=== PATIENT | female | born 1995 | race Caucasian/White ===

== ENCOUNTER 2023-05-12 13:51 | Outpatient (CLI) | payer OTHER, SELFPAY ==
--- NOTE | 2023-05-12 14:00 | CRLHL7_ITS ---
For Patients: As a result of the Century Cures Act, medical imaging exams and procedure reports are released immediately into your electronic medical record. You may view this report before your referring provider. If you have questions, please contact your health care provider. INDICATION: First trimester scan, establish dates. COMPARISON: None. TECHNIQUE: Real-time alcazar-scale imaging of the pelvis was performed. FINDINGS: Sonographic imaging demonstrates a single living intrauterine gestation. The embryo demonstrates a regular cardiac rate measuring 166 beats per minute. The embryo`s crown-rump length measurement of 3.5 cm corresponds to a gestational age of 10 weeks 3 days with a sonographic due date of 12/05/2023. There is a normal-appearing yolk sac. There are no gross abnormalities noted within the embryo at this early state of development. The gestational sac has a normal appearance. There is no evidence of a perigestational hemorrhage. The amount of fluid within the sac appears appropriate for gestational age. The cervix is closed. The myometrium appears normal. The ovaries are of normal size. Corpus luteal cyst left ovary. There are no suspicious fluid collections noted in the cul-de-sac. IMPRESSION: Normal first trimester OB ultrasound exam. Gestational age calculated at 10 weeks 3 days with a sonographic due date of 12/05/2023. Dictated by Keny Arciniega MD @ 05/13/2023 9:46:31 AM (Electronically Signed)
== END 2023-05-12 13:52 | disposition home or self-care (01) ==
LOC: US 13:52
PROVIDERS: Visit Provider Advanced Practice Midwife
DX: Z34.91 Encounter for supervision of normal pregnancy, unspecified, first trimester (principal); Z3A.10 10 weeks gestation of pregnancy
CPT/HCPCS: 76801

== ENCOUNTER 2023-05-12 15:15 | Outpatient (CLI) | payer OTHER, SELFPAY | END 2023-05-12 15:16 | disposition home or self-care (01) | PROVIDERS: Visit Provider Advanced Practice Midwife | DX: Z34.91 Encounter for supervision of normal pregnancy, unspecified, first trimester (principal); Z3A.10 10 weeks gestation of pregnancy | CPT/HCPCS: 86592; 86703; 86762; 86787; 86803; 86850; 86900; 86901; 87086; 87340; 87491; 87591 ==

== ENCOUNTER 2023-07-26 15:00 | Outpatient (CLI) | payer OTHER, SELFPAY ==
--- NOTE | 2023-07-26 15:00 | CRLHL7_ITS ---
For Patients: As a result of the Century Cures Act, medical imaging exams and procedure reports are released immediately into your electronic medical record. You may view this report before your referring provider. If you have questions, please contact your health care provider. INDICATION: 2nd trimester anatomical survey. TECHNIQUE: Ultrasound OB pelvis transabdominal. Real-time alcazar-scale imaging of the fetus was performed as well as color Doppler and spectral Doppler analysis of the umbilical artery. COMPARISON: None. FINDINGS: There is a single living intrauterine gestation. heart activity: Regular cardiac rate of 165 beats per minute. Orientation: Breech. Placenta: Anterior. No previa. Amniotic fluid volume: Normal. Deepest pocket 4 cm. Cervix: 3 cm. Biometry: Biparietal diameter: 20 weeks 4 days. Head circumference: 20 weeks 4 days. Abdominal circumference: 21 weeks 5 days. Femoral length: 21 weeks 1 day. The composite ultrasound gestational age is calculated at 21 weeks 0 days with an estimated sonographic due date of December 06, 2023. The weight is estimated at 416 grams, the 78th percentile. Anatomical Survey: 4 chamber heart: Visualized. Stomach: Visualized. Kidneys: Visualized. Bladder: Visualized. Spine: Visualized. Sacrum: Visualized. 4 extremities: Visualized. Cord insertion: Visualized. 3V cord: Visualized. Face: Visualized. Nose: Visualized. Lips: Visualized. Cerebellum: Visualized. Cisterna Magna: Visualized. Lateral ventricles: Visualized. IMPRESSION: 1. Single viable intrauterine . 2. No intrinsic abnormalities noted on anatomic survey. Dictated by Feliberto Martin MD @ 07/27/2023 4:25:02 PM (Electronically Signed)
== END 2023-07-26 15:01 | disposition home or self-care (01) ==
LOC: US 15:01
PROVIDERS: Visit Provider Advanced Practice Midwife
DX: Z34.92 Encounter for supervision of normal pregnancy, unspecified, second trimester (principal); Z3A.20 20 weeks gestation of pregnancy
CPT/HCPCS: 76805

== ENCOUNTER 2023-09-16 14:00 | Outpatient (CLI) | payer OTHER, SELFPAY | END 2023-09-16 14:01 | disposition home or self-care (01) | LOC: NFLDREF 09-20 07:53 | PROVIDERS: Visit Provider Advanced Practice Midwife | DX: Z34.83 Encounter for supervision of other normal pregnancy, third trimester (principal) | CPT/HCPCS: 86592 ==

== ENCOUNTER 2023-09-23 07:41 | Outpatient (CLI) | payer OTHER, SELFPAY | END 2023-09-23 07:42 | disposition home or self-care (01) | PROVIDERS: Visit Provider Advanced Practice Midwife | DX: Z34.03 Encounter for supervision of normal first pregnancy, third trimester (principal) | CPT/HCPCS: 82951; 82952 ==

== ENCOUNTER 2023-11-11 11:05 | Outpatient (CLI) | payer OTHER, SELFPAY | END 2023-11-11 11:06 | disposition home or self-care (01) | LOC: NFLDREF 11-16 07:39 | PROVIDERS: Visit Provider Advanced Practice Midwife | DX: Z34.03 Encounter for supervision of normal first pregnancy, third trimester (principal) | CPT/HCPCS: 87081; 87653 ==

== ENCOUNTER 2023-12-02 02:23 | Inpatient (IN) | payer OTHER, SELFPAY ==
[2023-12-02] VITALS (30 sets, daily range): BP systolic 105–142; BP diastolic 60–90; PULSE 73–142; RESP 16–18; TEMP 36.5–37.3; O2SAT 96–99; BMI 28.5
[2023-12-02 02:56] LABS: Basophils Percent Auto 0.3 % (0.0-3.0); Eosinophils Percent Auto 0.3 % (0.0-7.0); Hematocrit 39.8 % (33.0-51.0); Hemoglobin* 13.6 gm/dL (12.0-16.0); Immature Granulocytes Pct Auto 0.3 %; Lymphocytes Percent Auto 9.2 % (20-44); Mean Corpuscular HGB Conc 34 gm/dL (32-36); Mean Corpuscular Hemoglobin 31 pg (26-34); Mean Corpuscular Volume 92 fL (80-100); Monocytes Percent Auto 6.3 % (0.0-11.0); Neutrophils Percent Auto 83.6 % (42.0-72.0); Platelet Count* 219 K/uL (140-440); RDW Coefficient of Variation % 12.9 % (11.5-15.5); Red Blood Count 4.35 m/uL (4.00-5.20); White Blood Count* 14.19 K/uL (4.50-11.00)
[2023-12-02 03:42] LABS: Slide Review Reflex No
--- NOTE | 2023-12-02 05:39 | P.LDBA_ITS ---
Subjective History of Present Illness Narrative: Patient is being admitted to Labor and Delivery for active labor. She is a 28 year old at 39.1 weeks gestation. Her full history and physical was dictated by Sho Carias CNM on 11/18/23. Please see this for details. She began contraction around 2200 yesterday evening. They quickly increased to every 2-3 minutes and slowly increased in intensity. She came to be evaluated around 0100. at that time she was 1cm but 1.5 hours later she was 3-4/60%/-2 per RN exam. She currently feels that they are still increasing in intensity and is breathing through them. She has been attempting to rest between contractions for the last couple of hours but is ready to get up and move. We talked about the labor warm up circuit and other position changes. The RN will assist her with these. Offered to recheck her cervix but she declines at this time. The RN did briefly discuss with the patient the recommendation for enoxaparin PP but the patient states that she will likely decline. Will plan to discuss this more indepth after delivery. Specific Issues/Plans H&P by Sho Carias CNM on 11/18/23 1. Hx of exercise induced asthma, mostly as a child 2. Heterozygous Factor 5 Leiden mutation [facility] consult: completed w/ [facility] 05/31/2023 Offered monitoring for dvt vs anticoagulation during , declined anticoagulation during : Recommend prophylactic anticoagulation therapy of intermediate dose LWWH/UFH for 6 weeks pp Plan : Enoxaparin 40 mg daily starting 6-12 following or 12-24 following c/s 3. Failed 1 hour gct (149) 3 hour gct: passed all 3 values Needs pap Flu: declines (06/01/2023) Tdap: declined COVID: declined 32wk Mental Health: 10/14/2023 34wk Hgb: 10/28/2023 OB - Problem Based A/P Additional Plan (1) Heterozygous factor V Leiden mutation: Status: Acute (2) Pain during labor: Status: Acute (3) Asthma, exercise induced: Problem details: Mostly as a child Status: Acute Plan ASSESSMENT:? at 39.1 weeks gestation? GBS negative? complicated by Heterozygous Factor 5 Leiden mutation. Declined recommended medication treatment during . ? ?? PLAN:? 1. Desires water . Consent signed. Hep C negative.? 2. Candidate for analgesia of choice. Planning unmedicated .? 3. Anticipate ? 4. Plan for Enoxaparin 40mg daily starting . Will discuss further at that time. 5. Expectant management at this time.? 6. Criteria not met for IV placement at this time. Placemnt if criteriam are met. 7. Intermittent auscultation after reactive tracing per policy.? ? Delivery/Labor/Induction Plan Plan: expectant management OB Result Labs Blood Type: O (+) positive GBS Status: negative OB Exam Physical Exam Vital signs: Temp Pulse Resp BP 98 F 116 H 18 111/66 12/02/23 03:10 12/02/23 04:54 12/02/23 03:10 12/02/23 04:54 Narrative: Psychiatric:? Alert and oriented x3? HEENT:? Normocephalic, atraumatic? Neck:? Supple without adenopathy or thyromegaly? Lungs:? Clear to auscultation bilaterally? Heart:? Regular rate and rhythm, no murmur, rub or gallop? Abdomen:? Soft, nontender, and gravid? Extremities:? No edema or erythema? Detailed Labor and Delivery Exam Patient Gravid: Yes Dilation (cm): 3 (per RN exam) Effacement (%): 60 Contraction Frequency: Q3-4 minutes Fetus (Single) Station: -2
--- NOTE | 2023-12-02 07:50 | PM.OBPNL ---
Subjective Date Seen: 12/02/23 Narrative: Teresa is a at 39 1/7 weeks gestation that presented this morning in labor. She is supported by her , Shailesh. She is coping well with contractions with ambulation, position changes, and rest. When I rounded she had reported that she had just had a gush of clear fluid. Objective Exam: Objective: Constitutional: Alert and oriented x3, mild/moderate distress, coping well Vital signs stable, see nurse documentation Abdomen: gravid, contractions palpate moderate with contractions and soft between Cervix: 3-4 cm around 5 am by RN Intermittent auscultation: Reassuring, baseline consistent with NST this am Vital Signs: Last Vital Signs Temp 97.7 F 12/02/23 07:39 Pulse 113 H 12/02/23 07:39 Resp 16 12/02/23 07:39 BP 136/90 H 12/02/23 07:39 Pulse Ox 99 12/02/23 06:20 Contractions Monitor mode: Palpation Contraction Frequency: 2-5 minutes Contraction pattern: Irregular Contraction intensity: Moderate Assessment Assessment: early labor Station: -2 Plan Plan: ASSESSMENT:? 28 yo at 39.1 weeks gestation? complicated by:?Heterozygous Factor 5 Leiden mutation Labor type: Spontaneous, Early labor? Intermittent Auscultation, reassuring Labor complicated by: none? GBS negative? ? PLAN:? 1. Routine intrapartum cares as ordered. Continue with expectant management? 2. Monitoring per policy, intermittent? 3. Planning unmedicated . Desires water . Consent signed. Hep C negative. Candidate for analgesia of choice if desired.?? 4. Patient encouraged to reposition and ambulate to promote physiologic labor and .? 5. Plan for Enoxaparin 40mg daily starting . Will discuss further at that time. 6. Anticipate ?
[2023-12-02] MEDS: OXYTOCIN 10 UNIT/ML INJ IM (22:01)
--- NOTE | 2023-12-02 22:41 | W.PM.OBVAGDE ---
OB Procedure Vag Delivery Mother Details Mother Details: The patient is a 28 year-old, 1, now Para 1, admitted on 12/02/23 at 39.1 gestation. : 1 Para: 1 Weeks Gestation: 39.1 Admission Date: 12/02/23 Additional Details Amniotic Membrane Status: SROM Amniotic Membrane Rupture Date: 12/02/23 Amniotic Membrane Rupture Time: 06:59 Amniotic Membrane Fluid Description: Clear (Forebag ruptured at time of complete) Analgesia/Anesthesia Type: None Waterbirth: Yes Pitcoin: Yes (AMTSL only) Intrapartal Events: None Labor Onset: 02:15 Complete: 17:34 Pushin:40 Heart: heart tones during second stage were reassuring via intermittent auscultation throughout. Delivery Details Delivery Date: 12/02/23 Delivery Time: 21:48 Route of delivery: Infant Gender: Male Infant Viability: Alive; Heart Rate Present Position at Delivery: OA Delivery Details: Patient was admitted for spontaneous onset of labor and progressed normally. SROM noted at 0659 with clear fluid, AROM of forebag at 1734 with clear fluid. Patient was complete at 1734 but did not have an urge to push. She labored in the tub and began pushing at 1840. She pushed in multiple positions in the tub. of a viable male at 2148 in semi-fowlers in the tub. Vertex delivered OA. No nuchal cord or shoulder. Body delivered easily and without incident. Infant passed to mothers abdomen with a vigorous cry. Cord was clamped and cut at > 5 minutes. APGARS were 7 at one minute and 9 at five minutes respectively. Mouth was bulb suctioned. Intact placenta with a 3 vessel cord delivered spontaneously at 2215. Assorted area of fat deposits from placenta up side into amniotic sac. Placenta sent to pathology. Fundus firm. Intact perineum identified. QBL 425 cc, IM pitocin given for AMTSL. Mother and baby stable; mother plans to breastfeed. weight 6lb 1.4 oz. 1 Minute Interval Total Score: 7 5 Minute Interval Total Score: 9 Additional Details Shoulder Dystocia: No Placenta Delivery Time: 22:15 Placental Delivery Description: Spontaneous Procedure Done: Global Blood Loss: 425 Laceration: None Blood Loss Measurement Type: QBL Bakri Used: No Sponge/Need Count Correct: Yes Cord Vessel Description: 3 Vessels Event Summary Status: Mother and were stable after delivery. Patient was recommended prophylaxis Lovenox for Factor V heterozygous mutation. She declines. This was reviewed during and again briefly . She still declines at this time. Disposition: floor
[2023-12-03] VITALS (9 sets, daily range): BP systolic 105–119; BP diastolic 59–87; PULSE 68–108; RESP 16–18; TEMP 36.6–37.3; O2SAT 96–99
--- NOTE | 2023-12-03 00:48 | PM.OBPNL ---
Subjective Date Seen: 12/03/23 Narrative: Teresa is a 28 yo at 39.1 weeks gestation that presented in early labor this morning. She has made cervical change and is progressively more uncomfortable. She is supported by her , Shailesh. She has used the shower, position changes, and rest for management of contraction pain. She is feeling like she doesn't know if she can continue. Patient denies any urge to push, does occasionally have pressure in her vagina. Objective Exam: Objective: Constitutional: Alert and oriented x3, moderate/severe distress, coping well Vital signs stable, see nurse documentation Abdomen: gravid, contractions palpate strong with contractions and soft between Cervix: Complete with bulging BOW, 0 station Reassuring via intermittent auscultation Vital Signs: Last Vital Signs Temp 99.2 F 12/03/23 00:22 Pulse 98 12/03/23 00:19 Resp 18 12/03/23 00:22 BP 112/64 12/03/23 00:19 Pulse Ox 96 12/03/23 00:22 Contractions Monitor mode: Palpation Contraction pattern: Irregular Contraction intensity: Moderate Assessment Station: -2 Amniotic Membrane Status: AROM Plan Plan: Reviewed options of AROM vs expectant management. Recommend AROM to assist in descent. Patient would like to return to tub for labor support after AROM. This was performed with consent with clear fluid. Anticipate .
[2023-12-03] MEDS: IBUPROFEN 600 MG TABLET PO ×2 (03:18→09:50)
[2023-12-03] MEDS: ACETAMINOPHEN 500 MG TABLET 1000 MG PO (05:54)
--- NOTE | 2023-12-03 09:18 | P.OBPN_ITS ---
OB - PN:Subj Subjective Date Seen: 12/03/23 Patient comments OB post-: no complaints, pain well controlled, tolerating diet and flatus present [place] status: (working on latching with help from nursing staff ) and doing well [place] feeding status: exclusively Narrative: Day 1:? Vaginal Delivery at 39 and 1/7 weeks.? ?? Complications:? none? The patient feels well.? The pain is well controlled with current medications.? She has no new complaints.? Urinary output is adequate and she is voiding without difficulty.? Has a good appetite, is tolerating a general diet, is passing flatus, and has not had a bowel movement.? Has small amount of rubra lochia.? She is ambulating well.?Again discussed recommendation for Enoxaparin 40 mg daily r/t factor V diagnosis and denies and denies questions or concerns. OB - PN: Obj Exam Physical Exam: Vital signs: Temp Pulse Resp BP Pulse Ox O2 Del Method 99.2 F 105 H 18 106/71 96 Room Air 12/03/23 02:54 12/03/23 02:54 12/03/23 02:54 12/03/23 02:54 12/03/23 00:22 12/03/23 02:54 Narrative: GENERAL APPEARANCE:? normal affect, alert, no distress? MOOD:? appropriate? CHEST:? clear to auscultation and percussion? HEART:? regular rate and rhythm? ABDOMEN:? soft, non-tender the uterine fundus is U/2 and is appropriate for the stage of recovery.? PERINEUM:? mild edema of the perineum, there is a intact perineum that is healing well.? EXTREMITIES:? normal and no edema? OB - PN: A/P Delivery Assessment and Plan (1) Heterozygous factor V Leiden mutation: Status: Acute (2) Asthma, exercise induced: Problem details: Mostly as a child Status: Acute (3) Lactating mother: Status: Acute (4) care following vaginal delivery: Status: Acute Plan day: 1 Plan: routine care Comments: Anticipate discharge tomorrow.
[2023-12-03] MEDS: DOCUSATE SODIUM 100 MG CAPSULE PO (09:51)
[2023-12-03 12:01] LABS: Rapid Plasma Reagin (RPR) Non Reactive (Non Reactive)
--- NOTE | 2023-12-04 08:53 | PM.OBDSVD1 ---
DS: Providers Provider Date Seen: 12/04/23 Date of admission: 12/02/23 02:23 Primary care physician: Not a Local Provider Admitting Clinician: Diamond Prasad CNM Attending Physician on discharge: Diamond Prasad CNM Date of Discharge: 12/04/23 DS: Diagnosis Discharge Diagnosis (1) care following vaginal delivery: Status: Acute (2) Lactating mother: Status: Acute (3) Heterozygous factor V Leiden mutation: Status: Acute Exam Narrative: Exam Narrative: GENERAL APPEARANCE:? normal affect, alert, no distress? MOOD:? appropriate? CHEST:? clear to auscultation and percussion? HEART:? regular rate and rhythm? ABDOMEN:? soft, non-tender the uterine fundus is firm, at the Umbilicus and to the right. She endorses a need to urinate and this was encouraged. It is appropriate for the stage of recovery. ? PERINEUM:? mild edema of the perineum, there is a intact perineum that is healing well.? EXTREMITIES:? normal and no edema? Patient has no complaints? No active bleeding?? Doing well? She is requesting discharge home.? Const: Vital Signs, click to edit/add: Vital Signs - 24 hr 12/03/23 08:55 12/03/23 13:00 12/03/23 17:45 Temperature 98.4 F 97.8 F 98.1 F Pulse Rate [Pulse Oximeter] 97 79 84 Respiratory Rate 16 16 16 Blood Pressure [Le ft Arm] 105/72 119/76 111/75 Pulse Oximetry 96 96 97 Oxygen Delivery Me thod Room Air Room Air Room Air 12/03/23 19:59 12/03/23 23:40 Temperature 98.6 F 98.6 F Pulse Rate [Pulse Oximeter] 94 68 Respiratory Rate 18 16 Blood Pressure [Le ft Arm] 111/87 106/74 Pulse Oximetry 99 Oxygen Delivery Me thod Room Air Room Air Documenting provider has reviewed patient's vital signs: yes OB - DS: Summary Hospital Course Hospital Course: The patient is a 28 year old G 1 P 1 at 39.1 weeks gestation that was admitted to the Center on 12/02/23 for spontaneous labor. She had an uncomplicated vaginal delivery. She delivered a viable male . She is breast feeding and feels it is going good. Working on [employer], encouraged visit with concerns. the patient has done well.?Her pain is well controlled with current medications.? She has no new complaints.? Urinary output is adequate and she is voiding without difficulty.? Has a good appetite, is tolerating a general diet, is passing flatus, and has not had a bowel movement.? Has scant amount of rubra lochia.? She is ambulating well.?She is planning NFP and condoms for contraception. Peripartum Data delivery method: Vaginal Laceration description: None Episiotomy description: None complications: none Gender: Male Discharge Plan: Home Status at Discharge Functional status at discharge: independent ambulation Overall status at discharge: patient is progressing back to baseline Time Spent with Patient Time attestation: Total time spent providing and/or coordinating discharge services: Discharge Plan Discharge Disposition: Home, Self-Care Date of Admission: 12/02/23 02:23 Attending Provider on Discharge: Diamond Prasad Primary Care Provider: Provider,Not a Local Condition: Stable Anticipated Discharge Date/Time: 12/04/23 10:00 Discharge Medications: New docusate sodium 100 mg Capsule 100 mg PO DAILY Qty: 90 0RF Rx Instructions: Take 1-2 tablets daily as needed for constipation. ibuprofen 600 mg Tablet 600 mg PO Q6H PRNQty: 30 0RF Continued DHA 200 mg capsule 200 mg PO DAILY Discharge Orders: Discharge Order (Routine); Ordered 12/04/23 Ordered By: Diamond Prasad Patient Education: OB Vaginal/Breast Feeding Additional Instructions: Discharge instructions were reviewed with the patient including signs and symptoms of infection and home going medications.? Lifting Restrictions: 20 pounds for 6? weeks? ?? Do not drive while taking narcotic pain meds.? Off Work or School for 6 weeks.? ?? Symptoms to report to doctor:? -Bleeding that saturates more than one pad per hour? -Passing clots larger than the size of a golf ball? -Pain not relieved by prescribed medication? -Fever above 100.4 degrees Fahrenheit? -A foul vaginal odor? -Difficulty in emotions, mood and functions? -Thoughts of hurting yourself and/or ? -Painful, reddened area in your breast? -Any drainage, redness or tenderness in your IV/epidural site? -Severe headache that doesn't improve after taking medications? -Changes in vision, including temporary loss of vision, blurred vision, and/or light sensitivity? -Upper abdominal pain (usually under ribs on the right side)? -Decrease in urination or painful, frequent urinating? -Chest pain? -Shortness of breath? -Tenderness or pain with redness and/swelling in the calf(s) of your leg? ?? Follow Up in clinic in 2 and 6 weeks.? ?? consultation services are available to all mothers and babies for the first year after delivery.? To make an appointment, please call [phone].? Activity Level: Activity as Tolerated Follow Up Appointments: Provider,Not a Local [Primary Care Provider] - [facility] [Provider Group] Forms: MyHealth Info Instructions
[2023-12-04] MEDS: DOCUSATE SODIUM 100 MG CAPSULE PO (09:25)
[2023-12-04 09:32] VITALS: BP 111/78; PULSE 75; RESP 16; TEMP 36.8; O2SAT 97
== END 2023-12-04 12:15 | disposition home or self-care (01) | DRG 806 ==
LOC: OB OUT 02:23 → OB 02:23
PROVIDERS: Advanced Practice Midwife; Admitting Provider Advanced Practice Midwife; Visit Provider Advanced Practice Midwife
DX: O99.12 Other diseases of the blood and blood-forming organs and certain disorders involving the immune mechanism complicating childbirth (principal); D68.51 Activated protein C resistance; Z37.0 Single live birth; Z3A.39 39 weeks gestation of pregnancy
CPT/HCPCS: 36415; 85025; 86592; 86850; 86900; 86901; 88307; A9270; J2590

== ENCOUNTER 2023-12-07 14:35 | Outpatient (CLI) | payer OTHER, SELFPAY ==
--- NOTE | 2023-12-07 17:00 | P.LACCB_ITS ---
Consult Note - Mom Date of Visit Date of visit: 12/07/23 business analysis consultant: Marsha Garcia Visit Code: Visit Patient's Information Phone number: [phone] : 1 Para: 1 Allergies lactose Allergy (Mild, Verified 12/02/23 01:11) Gastrointestinal Upset Mother's Medical History: Medical History (Updated 12/12/23 @ 00:01 by Background Daemon) Type of Contraception: NFP Delivery Information Delivery type: Vaginal Weeks Gestation: 39.1 Gestational Age: SGA Weight: 2.76 kg Discharge Weight: 2.713 kg Baby's Information Baby's Age at Visit: 5 days Baby's Provider or Clinic: [facility] Jaundice: Yes (to abdomen) Reason for Consult Reason for Consult: painful latch Past Experience Past Experience: No Current Frequency of Day Feedings: every 2 - 3 hours around the clock Both Breasts: Yes Suck: strong Latch: somewhat shallow Length of Time: about 10 min/side Pumping Pumping: No Supplementing EMB Supplement: No Formula Supplement: No Baby Elimination Number of Wet Diapers a Day: almost every feeding Number of BM a Day: 3 - 4/24 hours, transitional Breast/Nipple Condition Breast Information: WNL Engorgement: Yes (resolving) Maternal Nipple Condition - Left: Common Nipple Maternal Nipple Condition - Right: Common Nipple Sore Nipples: Yes Onsite Pre-Feed weight: 2.712 kg Post-Feed weight: 2.746 kg Milk Transferred (mL): 34 Assessments/Interventions Assessments/Interventions: Met with mom and this now 5 day old ex- term SGA baby for consult. Mom reports has been painful from the beginning but since her milk began to come in yesterday, it's been a little more comfortable. She reports the left side is the most uncomfortable and she's developing a small fissure on that nipple. Baby is nursing every 2 - 3 hours around the clock for about 10 minutes/side. She hasn't started pumping or offering any supplement. Breasts are WNL- symmetrical with rounded lower quadrants, intramammary distance is < 1.5 inches. They are full and firm, but not painful per mom. The nipples are everted and don't flatten or retract on compression, small fissure noted on the left nipple. Baby has gained 56 grams/day since his NB visit on 12/04 and he's now only 2% below BW at 5 DOL. His skull is still quite molded and mom reports he had a lump/molding to his forehead for the first few days that has resolved (denies it was boggy like a caput/cephalohematoma). POC state he favors turning his head to the right and laying on his right side but he has equal ROM when moving his extremities. He's jaundiced to his abdomen, but his TSB on 12/04 was WNL. His palate is a little high. His upper frenulum appears to be WNL. He has a strong suck on a finger, but his tongue doesn't come over the gumline consistently. There is also some canoeing when the tongue lateralizes. The lower frenulum wasn't visualized, posterior? Mom latched baby to the left side in the cradle hold and was quite uncomfortable. She was first shown how to remove him while protecting her nipple. Then with some position changes- baby more on his side and lower arm tucked around her breast, exaggerating nipple to nose, and bringing him quickly to her when he opened wide she was able to get a deeper latch and was more comfortable. Baby nursed about 10 minutes and needed a lot of stimulation to stay awake. Mom then switched him to the right and was able to get a comfortable latch as well. After another 10 minutes he was weighed and had transferred 34 ml. Mom was measured and a flange size suggested. POC were shown the tug of war exercise and palate sweeps to help with latching. Plan: 1. Continue to nurse baby ALD or at least every three hours around the clock. Offer both sides at each feeding and work to keep him awake and actively nursing. 2. No medical need to pump but suggested she hand express or use her [place] to comfort if needed after a nursing session, or before to soften the breasts before nursing if baby is having a hard time latching. 3. No medical need to supplement. 4. Try the exercises 4 - 5 times/day. 5. F/U with PCP for a 2 week WCC. Declined a one month pre and post feeding weight but encouraged her to call if there's no improvement in the latch (could consider body work or a pediatric dental referral). Meds Home Medications and Allergies Home Medications Medication Instructions Recorded Confirmed Type docosahexaenoic acid 200 mg 200 mg PO DAILY 05/12/23 12/02/23 History capsule ( DHA) Allergies Allergy/AdvReac Type Severity Reaction Status Date / Time lactose Allergy Mild Gastrointestinal Verified 12/02/23 01:11 Upset
== END 2023-12-07 14:36 | disposition home or self-care (01) ==
LOC: OB LAC 14:36
PROVIDERS: Visit Provider Advanced Practice Midwife
DX: Z39.1 Encounter for care and examination of lactating mother (principal)
CPT/HCPCS: G0463

== ENCOUNTER 2024-05-25 15:26 | Outpatient (CLI) | payer OTHER, SELFPAY ==
--- NOTE | 2024-05-25 16:28 | W.PM.LAC.MC ---
Consult Note - Mom Date of Visit Date of visit: 05/25/24 Reason for consultation: Low Milk Supply (milk supply questions) Visit Code: Visit Patient's Information Phone number: [phone] : 1 Para: 1 Allergies lactose Allergy (Mild, Verified 01/13/24 13:08) Gastrointestinal Upset Mother's Medical History: Medical History (Updated 12/12/23 @ 00:01 by Background Daemon) Cervical high risk HPV (human papillomavirus) test positive ?R87.810 - Cervical high risk human papillomavirus (HPV) DNA test positive (ICD-10) Atypical squamous cells of undetermined significance (ASC-US) on cervical Pap smear ?R87.610 - Atypical squamous cells of undetermined significance on cytologic smear of cervix (ASC-US) (ICD-10) 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, 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 Delivery Information Delivery type: Vaginal Gestational Age: 39+1 Baby's Information Baby's Age at Visit: 5m 22d Baby's Provider or Clinic: [facility] Jaundice: No Current Frequency of Day Feedings: every 3-4 hours Frequency of Night Feedings: sleeps 10-11 hours at night Both Breasts: Yes Suck: strong Latch: wide and deep Length of Time: 7-9 min ea side Goals: 1 year Pumping Pumping: Yes Quantity Pumped: 3-4 oz/pumping; had been getting 4-8 oz/pumping Supplementing EBM Supplement: Yes (takes 5-6 oz twice a day at daycare) Formula Supplement: No Baby Elimination Number of Wet Diapers a Day: each feeding Number of BM a Day: 3-4/day Breast/Nipple Condition Breast Shape: Round Engorgement: No Maternal Nipple Condition - Left: Common Nipple Maternal Nipple Condition - Right: Common Nipple Sore Nipples: No Baby Assessment Skin: Normal Tongue/frenulum: Normal/elastic Palate: Average Lips: Relaxed and Symmetrical Jaw Alignment: Symmetrical Mucosa: [place], moist Onsite Observation Pre-Feed weight: 6.846 kg Post-Feed weight: 7.012 kg Milk Transferred (mL): 166 (nursed 7 min right side, 8 min left side-pulled self off both sides, smiling and content) Position: Cross cradle Attachment/latch-on achieved: Easily Suck pattern: Suck burst and normal rest Swallow: Audible, consistent and Gulping Behavior following feed: Alert, content Pre-Nursing Left Nipple: Within Normal Limits Pre-Nursing Right Nipple: Within Normal Limits Post-Nursing Left Nipple: Within Normal Limits Post-Nursing Right Nipple: Within Normal Limits Assessments/Interventions Assessments/Interventions: Liam latched well to both breasts easily; somewhat distracted. needed quiet environment to stay latched. Discussed use of breast compression to help him stay latched near end of feeding by making more milk more easily available to him; mom thinks this did help a bit. Education provided: Supply/demand nature of milk supply and Pumping for milk management Feeding Plan: Continue with current feeding plan Mom pumping in the night x1 to help with having extra milk available; may not be needed since liam is growing well but certainly ok to do if mom feels reassured with the extra supply Discussed natural course of milk supply leveling out as baby is near 6 months of age, overall daily calorie needs go down so no need to continue to make an excess of milk. Reassured mom that baby is tracking on growth curve. Discussed reasons for low milk supply; option of trying a galactogogue but I don't know that mom needs it since she is meeting his needs, getting what is needed with pumping and feeding. Follow-Up Suggested follow up: Appointment as needed Time Spent Time spent with patient (min): 70 (time spent reviewing EMR and face to face with mom and baby) Meds Home Medications and Allergies Home Medications ?Medication ?Instructions ?Recorded ?Confirmed ?Type docosahexaenoic acid 200 mg 200 mg PO DAILY 05/12/23 12/02/23 History capsule ( DHA) Allergies Allergy/AdvReac Type Severity Reaction Status Date / Time lactose Allergy Mild Gastrointestinal Verified 01/13/24 13:08 Upset
== END 2024-05-25 15:27 | disposition home or self-care (01) ==
LOC: OB LAC 15:27
PROVIDERS: Visit Provider Obstetrics & Gynecology
DX: Z39.1 Encounter for care and examination of lactating mother (principal)
CPT/HCPCS: G0463

== ENCOUNTER 2025-04-18 13:17 | Outpatient (CLI) | payer OTHER, SELFPAY | END 2025-04-18 13:18 | disposition home or self-care (01) | PROVIDERS: Visit Provider Advanced Practice Midwife | DX: Z34.91 Encounter for supervision of normal pregnancy, unspecified, first trimester (principal); Z3A.09 9 weeks gestation of pregnancy | CPT/HCPCS: 76801; 83020; 83021; 84443; 85660; 86592; 86703; 86704; 86706; 86762; 86787; 86803; 87086; 87340 ==

== ENCOUNTER 2025-04-23 11:27 | Outpatient (CLI) | payer OTHER, SELFPAY ==
--- NOTE | 2025-04-23 11:30 | CRLHL7_ITS ---
For Patients: As a result of the Century Cures Act, medical imaging exams and procedure reports are released immediately into your electronic medical record. You may view this report before your referring provider. If you have questions, please contact your health care provider. OB ULTRASOUND LESS THAN 14 WEEKS, 04/23/2025 CLINICAL HISTORY: Brown vaginal discharge. IMPAGING: TA. COMPARISON: 04/18/2025 FINDINGS: LMP: 02/14/2025. GLENNY by LMP: 11/21/2025. GLENNY by US: 10/30/2025. GA: 12 weeks 6 days. CRL: 6.8 cm, 13 weeks 1 day. GLENNY: 10/28/2025. FHR: 161 bpm. GEST SAC: 6.5 cm, appears WNL. YOLK SAC: Not visualized. RIGHT OVARY: 3.0 x 1.4 x 2.7 cm, WNL. LEFT OVARY: 3.5 x 1.5 x 2.4 cm. WNL. IMPRESSION: 1. Single living intrauterine measuring 13 weeks 1 day and sonographic due date 10/28/2025. 2. No evidence of subchorionic hemorrhage. Keny Arciniega M.D. Diagnostic Radiologist [email or web address] Transcribed: 12:49 pm DW/Dictated by: Keny Arciniega MD @ 04/23/2025 12:10:00 PM (Electronically Signed)
== END 2025-04-23 11:28 | disposition home or self-care (01) ==
LOC: US 11:28
PROVIDERS: Visit Provider Advanced Practice Midwife
DX: O20.9 Hemorrhage in early pregnancy, unspecified (principal); Z3A.13 13 weeks gestation of pregnancy
CPT/HCPCS: 76801

== ENCOUNTER 2025-04-26 11:18 | Outpatient (CLI) | payer OTHER, SELFPAY ==
[2025-04-26 15:08] LABS: Bacterial Vaginosis* Negative (Negative); Candida glab/krus NOT DETECTED (No Detected)
[2025-04-26 15:39] LABS: Chlamydia DNA Amplified* NOT DETECTED (No Detected); GC DNA Amplified* NOT DETECTED (No Detected)
== END 2025-04-26 11:19 | disposition home or self-care (01) ==
PROVIDERS: Visit Provider Midwife
DX: N89.8 Other specified noninflammatory disorders of vagina (principal); O26.891 Other specified pregnancy related conditions, first trimester; O20.8 Other hemorrhage in early pregnancy; R30.0 Dysuria; Z3A.12 12 weeks gestation of pregnancy
CPT/HCPCS: 81513; 87086; 87481; 87491; 87591; 87661

== ENCOUNTER 2025-06-13 12:17 | Outpatient (CLI) | payer OTHER, SELFPAY ==
--- NOTE | 2025-06-13 12:15 | CRLHL7_ITS ---
For Patients: As a result of the 21st Century Cures Act, medical imaging exams and procedure reports are released immediately into your electronic medical record. You may view this report before your referring provider. If you have questions, please contact your health care provider. OB ULTRASOUND GREATER THAN 14 WEEKS CLINICAL HISTORY: Supervision of normal . TECHNIQUE: Real time alcazar scale imaging of the fetus was performed. Transabdominal imaging performed. FINDINGS: GLENNY by LMP: 10/30/2025. GA: 20 weeks 1 day. Position: Vertex. Cervix: Visualized. Technique: TA. Length of closed cervix: 4.7 cm. Placenta/Cord Placenta Position: Anterior, fundal. Technique: TA. Placenta tip to internal OS: 6.9 cm. Umbilical cord: 3 vessel cord. Placental Insertion: Marginal (within 2 cm of placenta edge). Amniotic Fluid: 4.2 cm SDP. Observed Structures: Calvarium/Spine Cerebellum: 1.8 cm, 19 weeks 0 days Cisterna Magna: 3.0 mm Nuchal Fold: 3.6 mm Lateral Ventricle: 4.4 mm CSP Choroid Plexus Midline Falx Spine Abdomen: Stomach Abd Cord Insert Urinary Bladder Kidneys Diaphragm Face: Nose/Lips Orbital View Profile Limbs: Upper Extremities Lower Extremities Hands Feet Vascular: 4 Ch Heart LVOT RVOT 3VV 3VTV BIOMETRY BPD: 4.3 cm 19 weeks 0 days. 11% HC: 16.3 cm, 19 weeks 0 days. 6% AC: 13.8 cm, 19 weeks 1 day. 17% FL: 3.1 cm, 19 weeks 5 days. 27% FL/AC: 22.71% HC/AC Ratio: 1.18. Heart Rate: 149 bpm. Age by this US: 19 weeks 2 days. GLENNY by this US: 11/05/2025. EFW: 290.06 grams, 0 lb 10 oz. Percentile by Glenny: 12.4% IMPRESSION: 1. Marginal placental cord insertion located 4 mm from the placental edge. 2. Debris in the stomach is noted. Remainder of the anatomic survey is normal. Short-term follow-up could be considered. 3. Concordance of clinical and sonographic dating. Keny Arciniega M.D. Diagnostic Radiologist [email or web address] Transcribed: 8:47 am DW/Dictated by: Keny Arciniega MD @ 06/16/2025 10:33:00 PM (Electronically Signed)
== END 2025-06-13 12:18 | disposition home or self-care (01) ==
LOC: US 12:17
PROVIDERS: Visit Provider Advanced Practice Midwife
DX: O43.192 Other malformation of placenta, second trimester (principal); Z3A.20 20 weeks gestation of pregnancy
CPT/HCPCS: 76805

== ENCOUNTER 2025-08-07 10:05 | Outpatient (CLI) | payer OTHER, SELFPAY ==
--- NOTE | 2025-08-07 10:15 | CRLHL7_ITS ---
For Patients: As a result of the Century Cures Act, medical imaging exams and procedure reports are released immediately into your electronic medical record. You may view this report before your referring provider. If you have questions, please contact your health care provider. OB ULTRASOUND GLENNY by US: 10/30/2024. GA: 28 w, 0 d. Single. Comparison: Ultrasound 06/13/2025 (68 images). INDICATION: Marginal cord insert. TECHNIQUE: Real time grayscale imaging of the fetus was performed. Transabdominal. CERVIX: Not visualized. POSITIONING: Breech, kye. AMNIOTIC FLUID: 5.3 cm. SDP (N: greater than 2 x 1 cm) PLACENTA: Technique: Transabdominal. PLACENTA POSITION: Anterior. DOPPLER: heart rate: 144 bpm. BIOMETRY: BPD: 7.0 cm. 28 w, 2 d, 47%. HC: 25.5 cm. 27 w, 5 d, 13%. AC: 22.6 cm. 27 w, 0 d, 15%. FL: 5.3 cm. 27 w, 4 d, 22%. FL/AC ratio: 22.8%. HC/AC ratio: 1.13. EFW: 1056g. Weight: 2 lbs., 5 oz. age by this US: 27 w, 5 d. GLENNY by this US: 11/01/2025. Percentile by GLENNY: 16%. IMPRESSION: 1. Sonographic gestational age 27 weeks 5 days and sonographic due date 11/01/2025. Good correlation with dates. Normal interval growth. 2. Estimated weight 16th percentile. Abdominal circumference 15th percentile. Keny Arciniega M.D. Diagnostic Radiologist [email or web address] by: Keny Arciniega MD @ 08/07/2025 11:15:00 AM (Electronically Signed)
== END 2025-08-07 10:06 | disposition home or self-care (01) ==
LOC: US 10:06
PROVIDERS: Visit Provider Midwife
DX: O43.193 Other malformation of placenta, third trimester (principal); Z3A.28 28 weeks gestation of pregnancy
CPT/HCPCS: 76816

== ENCOUNTER 2025-08-07 10:06 | Outpatient (CLI) | payer OTHER, SELFPAY | END 2025-08-07 10:07 | disposition home or self-care (01) | LOC: NFLDREF 08-13 16:37 | PROVIDERS: Visit Provider Advanced Practice Midwife | DX: Z34.83 Encounter for supervision of other normal pregnancy, third trimester (principal) | CPT/HCPCS: 86780 ==